=== PATIENT | male | born 1965 | race Caucasian/White ===

== ENCOUNTER 2017-07-31 04:00 | Emergency (ER) | payer SELFPAY ==
[~2017-07-31] VITALS: Ht 185.4 cm; Wt 71.0 kg
[2017-07-31 04:02] VITALS: BP 143/96
[2017-07-31] MEDS ORDERED: ACETAMINOPHEN 500 MG TABLET ONE (04:26)
[2017-07-31] MEDS ORDERED: ACETAMINOPHEN 500 MG TABLET PO ONE (04:30)
== END 2017-07-31 05:59 | disposition home or self-care (01) ==
LOC: ED 05:53
DX: S30.0XXA Contusion of lower back and pelvis, initial encounter (principal); W19.XXXA Unspecified fall, initial encounter; Y93.89 Activity, other specified; Y92.89 Other specified places as the place of occurrence of the external cause; Y99.8 Other external cause status
CPT/HCPCS: 72072; 99284

== ENCOUNTER 2017-10-07 12:34 | Emergency (ER) | payer MEDICAID, OTHER ==
[~2017-10-07] VITALS: Ht 185.4 cm; Wt 71.1 kg
[2017-10-07 12:53] VITALS: BP 108/71
== END 2017-10-07 14:33 | disposition home or self-care (01) ==
LOC: ED 14:27
DX: S93.401A Sprain of unspecified ligament of right ankle, initial encounter (principal); S93.601A Unspecified sprain of right foot, initial encounter; X50.1XXA Overexertion from prolonged static or awkward postures, initial encounter; Y93.89 Activity, other specified; Y92.89 Other specified places as the place of occurrence of the external cause; Y99.8 Other external cause status
CPT/HCPCS: 99284